=== PATIENT | male | born 1950 | race African-American/Black ===

== ENCOUNTER 2016-10-05 11:04 | Emergency (ER) | payer OTHER ==
[~2016-10-05] VITALS: Ht 170.2 cm; Wt 61.4 kg
[~2016-10-05 11:04] MED LIST: DIGO0.12 PO; GABA300C3 PO; LISI-357 PO; METO25 PO; TRAM100T19 PO; TRAZ50TA4 PO
[2016-10-05 11:06] VITALS: BP 144/83; PULSE 66; RESP 16; TEMP 98; O2SAT 95
[2016-10-05 11:54] LABS: AUTOMATED NEUTROPHIL # 1.5 TH/MM3 (1.8-7.7); BASOPHIL # 0.1 TH/MM3 (0-0.2); BASOPHIL % 2.2 % (0.0-2.0); EOSINOPHIL # 0.1 TH/MM3 (0-0.4); EOSINOPHIL % 2.1 % (0.0-4.0); HEMATOCRIT 36.2 % (39.0-51.0); HEMO FLAGS DIFF FINAL; LYMPH % 41.7 % (9.0-44.0); LYMPHOCYTE # 1.8 TH/MM3 (1.0-4.8); MEAN CELL VOLUME 80.7 FL (80.0-100.0); MEAN CORPUSCULAR HGB CONC 32.3 % (32.0-36.0); MONO % 19.9 % (0.0-8.0); NEUT % 34.1 % (16.0-70.0); PLATELET COUNT 228 TH/MM3 (150-450); RED BLOOD COUNT 4.48 MIL/MM3 (4.50-5.90); RED CELL DISTRIBUTION WIDTH 14.3 % (11.6-17.2); WHITE BLOOD COUNT 4.3 TH/MM3 (4.0-11.0)
[2016-10-05 12:10] LABS: ANION GAP 4 MEQ/L (5-15); BICARBONATE 31.2 MEQ/L (21.0-32.0); BLOOD UREA NITROGEN 14 MG/DL (7-18); CHLORIDE 107 MEQ/L (98-107); GLOMERULAR FILTRATION RATE 85 ML/MIN (>89); POTASSIUM 4.5 MEQ/L (3.5-5.1); SODIUM (NA) 142 MEQ/L (136-145)
[2016-10-05 12:17] LABS: CREATINE KINASE 100 U/L (39-308)
--- NOTE | 2016-10-06 14:23 | EKG ---
Date Performed: 10/05/2016 Time Performed: 11:46:13 PTAGE: 66 years EKG: Sinus rhythm RIGHT BUNDLE BRANCH BLOCK LEFT VENTRICULAR HYPERTROPHY AND ST-T CHANGE Prominent lateral T waves are likely from LVH but myocardial ischemia is not excluded. The EKG is largely unchanged on a serial ba sis although there has been some improvement in the diffuse T wave changes ABNORMAL ECG PREVIOUS TRACING : 01/10/16 DOCTOR: Aliya Camilo Interpretating Date/Time 10/06/2016 14:21:22
== END 2016-10-05 13:20 | disposition left against medical advice (07) ==
LOC: NETRI 11:04
DX: R53.1 Weakness (principal)
CPT/HCPCS: 80048; 82550; 84484; 85025; 93005; 99281